=== PATIENT | female | born 1935 | race Hispanic/Latino ===

== ENCOUNTER 2017-07-29 09:00 | Day surgery (SDC) | payer MEDICARE, BC ==
[2017-07-21 10:16] VITALS: BMI 20.5
[2017-07-29] MEDS ORDERED: Propofol 10 mg/ml Inj (20 ML) ONE (11:20)
[2017-07-29] MEDS ORDERED: Sodium Chloride 0.9% 1,000 ML IV SCH (12:00)
[2017-07-29 12:04] VITALS: O2SAT 100
[2017-07-29 12:20] VITALS: RESP 16
[2017-07-29 14:33] VITALS: BP 167/73; PULSE 62; TEMP 97.8
== END 2017-07-29 13:22 | disposition home or self-care (01) ==
LOC: ENDO 09:00
PROVIDERS: ATTEND Internal Medicine Gastroenterology
DX: R19.7 Diarrhea, unspecified (principal); K57.30 Diverticulosis of large intestine without perforation or abscess without bleeding; K64.4 Residual hemorrhoidal skin tags; K64.8 Other hemorrhoids
CPT/HCPCS: 45380; 88305; J2001; J2704; J7030; J7040